=== PATIENT | male | born 1965 | race Caucasian/White ===

== ENCOUNTER → 2020-10-07 09:27 | Outpatient (CLI) | payer OTHER, SELFPAY ==
[2020-10-07 10:57] LABS: COVID19 -Nasal RAPID Negative (Negative)
== END ==
PROVIDERS: Family Provider Family Medicine; PCP Family Medicine; Visit Provider Student in an Organized Health Care Education/Training Program
DX: Z11.59 Encounter for screening for other viral diseases (principal)
CPT/HCPCS: 87635

== ENCOUNTER → 2020-11-12 12:38 | Outpatient (CLI) | payer OTHER, SELFPAY ==
[2020-11-12] MEDS: COVID-19 VACC(MODERNA-1)/PF 100 MCG/0.5 ML VIAL IM (12:46)
== END ==
PROVIDERS: Visit Provider Internal Medicine
DX: Z23 Encounter for immunization (principal)
CPT/HCPCS: 0011A; 91301

== ENCOUNTER → 2020-12-08 07:39 | Outpatient (CLI) | payer OTHER, SELFPAY ==
[2020-12-08] MEDS: COVID-19 VACC #2, MRNA(MOD) 100 MCG/0.5 ML VIAL IM (07:46)
== END ==
PROVIDERS: Visit Provider Internal Medicine
DX: Z23 Encounter for immunization (principal)
CPT/HCPCS: 0012A; 91301

== ENCOUNTER → 2021-03-15 08:00 | Outpatient (CLI) | payer OTHER, SELFPAY ==
--- NOTE | 2021-03-15 | DI.ECHO.S_ITS ---
[facility]---------+ [facility] +---------+ : : [address] : [address] : : : : [id number] : : : : Phone: [phone] +---------+ Echocardiogram Report + + :Name: LANDY SANCHEZ Study Date: 03/15/2021 Height: 70 in : :[facility] ReadingLocation: Weight: 185 lb : : Gender: Male BSA: 2.0 m2 : :: 1965 Age: 55 yrs BP: 118/64 mmHg: :Reason For Study: CARDIOMYOPATHY : :Ordering Physician: AILIN, : :ROBERTO Performed By: Marla Mcknight : :Referring: ROBERTO GIANG : + + Interpretation Summary Limited Echo: 1) Normal left ventricular thickness and size with low normal systolic function (EF about 50%). 2) The right ventricle is borderline dilated and has normal function. 3) Compared to the Echo done 10/09/2020, LVEF has improved from 40-45% to about 50% on this study. Procedure: A two-dimensional transthoracic echocardiogram with color flow and Doppler was performed in limited views only to assess ejection fraction. The study quality was technically adequate. Comparison is made with the echocardiogram of 10/09/2020. The patient was in sinus rhythm with heart rates between 48-65 bpm during the exam. Left Ventricle: The left ventricle is normal in size and wall thickness. Left ventricular ejection fraction is estimated to be 50 +/- 5%. There are no focal wall motion abnormalities. Right Ventricle: The right ventricle is borderline dilated. The right ventricular systolic function is normal. Atria: The left atrium is borderline dilated. Right atrial size is normal. Great Vessels: The IVC is of normal diameter and collapses greater than 50% with a sniff. This suggests a low right atrial pressure of 3 mm Hg. Pericardium/ Pleura There is no pericardial effusion. There is no pleural effusion. MMode/2D Measurements & Calculations LVIDd: 4.9 cm LA A2 area: 20.9 cm2 LVIDs: 3.6 cm LA A4 area: 22.1 cm2 FS: 27.5 % LA length (vol): 5.9 cm IVSd: 0.77 cm LA vol: 66.9 ml LVPWd: 0.69 cm LA vol index: 33.1 ml/m2 LV olguin. diameter/BSA (cm/m^2): 2.4 LV sys. diameter/BSA (cm/m^2): 1.8 RA long axis: 5.6 cm RVD1 (basal): 3.8 cm RA area: 20.6 cm2 TAPSE: 2.5 cm RA vol: 64.8 ml RA : 32.1 ml/m2 IVC diam: 1.1 cm Reading Physician:12:29 PM
== END ==
PROVIDERS: Referring Provider Internal Medicine Cardiovascular Disease; Visit Provider Internal Medicine Cardiovascular Disease
DX: I42.9 Cardiomyopathy, unspecified (principal)
CPT/HCPCS: 93307

== ENCOUNTER → 2022-04-04 06:42 | Outpatient (CLI) | payer OTHER, SELFPAY ==
--- NOTE | 2022-04-04 | DI.ECHO.S_ITS ---
[facility]---------+ [facility] +---------+ : : [address] : : : : [place] : : : : [id number] : : : : Phone: [phone] +---------+ Echocardiogram Report + + :Name: LANDY SANCHEZ Study Date: 04/04/2022 Height: 70 in : :[facility] ReadingLocation: Weight: 190 lb : : Gender: Male BSA: 2.0 m2 : :: 1965 Age: 56 yrs BP: 107/77 mmHg: :Reason For Study: Cardiomyopathy : :Ordering Physician: AILIN, : :ROBERTO Performed By: Franklin Ybarra : :Referring: ROBERTO GIANG : + + Interpretation Summary 1) Normal left ventricular thickness, size, wall motion, and systolic function (EF 55-60%). 2) Upper normal right ventricular size with normal function. 3) No significant valvular abnormalities. 4) Compared to the Echo done 03/15/2021, LVEF has improved from about 50% to 55- 50% on this study. Procedure: A two-dimensional transthoracic echocardiogram with color flow and Doppler was performed. The study quality was technically adequate. Comparison is made with the echocardiogram of 03/14/2021. The patient was in normal sinus rhythm during the exam. Left Ventricle: The left ventricle is normal in size and wall thickness. The ejection fraction is estimated to be 55-60%. Left ventricular systolic function appears normal without focal wall motion abnormalities. Diastolic parameters suggest probable normal left ventricular diastolic function and normal filling pressures. Right Ventricle: The right ventricle is at the upper limits of normal in size. The right ventricular systolic function is normal. Atria: Both atria are normal in size. The interatrial septum grossly appears intact with no obvious evidence for an atrial septal defect. Mitral Valve: The mitral valve is normal in structure and function. There is trace mitral regurgitation. Aortic Valve: The aortic valve is normal in structure and function. There is no aortic valve stenosis. No aortic regurgitation is present. Tricuspid Valve: The tricuspid valve is normal in structure and function. There is mild tricuspid regurgitation. The right ventricular systolic pressure is estimated to be at least 24 mmHg based on an estimated right atrial pressure of 3 mm Hg. Pulmonic Valve: The pulmonic valve is normal in structure and function. There is a trace or physiologic amount of pulmonic regurgitation. Great Vessels: The aortic root is normal size. The dimensions of the ascending aorta are normal. The IVC is of normal diameter and collapses greater than 50% with a sniff. This suggests a low right atrial pressure of 3 mm Hg. Pericardium/ Pleura There is no pericardial effusion. There is no pleural effusion. MMode/2D Measurements & Calculations LVIDd: 5.2 cm LVOT diam: 2.0 cm LVIDs: 3.4 cm Ao root diam: 3.0 cm FS: 34.6 % asc Aorta Diam: 2.9 cm IVSd: 0.90 cm LVPWd: 1.0 cm LV olguin. diameter/BSA (cm/m^2): 2.5 LV sys. diameter/BSA (cm/m^2): 1.7 LA dimension: 3.8 cm RA long axis: 5.3 cm LA A2 area: 19.4 cm2 RA area: 18.1 cm2 LA A4 area: 22.6 cm2 RA vol: 52.3 ml LA length (vol): 5.5 cm RA : 25.6 ml/m2 LA vol: 67.5 ml LA vol index: 33.1 ml/m2 TAPSE_phl: 2.8 cm Doppler Measurements & Calculations Ao V2 max: 110.0 cm/sec LVOT Max Donell: 92.0 cm/sec Ao V2 mean: 79.1 cm/sec LV V1 max P.4 mmHg Ao max P.0 mmHg LV V1 VTI: 21.3 cm Ao mean P.0 mmHg HUMBERTO(I,D): 2.7 cm2 Ao V2 VTI: 24.4 cm HUMBERTO(V,D): 2.6 cm2 sev ratio: 0.87 HUMBERTO indexed to BSA (cm^2/m^2): 1.3 MV E max donell: 78.4 cm/sec TR max donell: 228.0 cm/sec MV A max donell: 51.8 cm/sec TR max P.8 mmHg MV E/A: 1.5 Med Peak E' Donell: 8.9 cm/sec E/E' med: 8.8 Lat Peak E' Donell: 12.6 cm/sec E/E' lat: 6.2 E/e' average: 7.5 MV dec time: 0.26 sec SV(LVOT): 66.9 ml AV VR_phl: 0.84 HUMBERTO(VTI)/BSA_phl: 1.3 MV P1/2t-pr_phl: 77.0 msec Reading Physician:12:45 PM
== END ==
PROVIDERS: Referring Provider Internal Medicine Cardiovascular Disease; Visit Provider Internal Medicine Cardiovascular Disease
DX: I07.1 Rheumatic tricuspid insufficiency (principal); I42.9 Cardiomyopathy, unspecified
CPT/HCPCS: 93306

== ENCOUNTER → 2022-05-07 10:39 | Outpatient (CLI) | payer OTHER, SELFPAY ==
[2022-05-07 11:37] LABS: Add Manual Diff / Slide Review NO; Basophils Absolute Auto 0 /uL (0-100); Basophils Percent Auto 0.7 % (0-2); Eosinophils Absolute Auto 200 /uL (0-450); Eosinophils Percent Auto 3.4 % (2-4); Hematocrit 45.6 % (41-53); Hemoglobin 15.5 g/dL (13.5-17.5); Lymphocytes Absolute Auto 1900 /uL (1100-4500); Lymphocytes Percent Auto 29.1 % (25-40); Mean Corpuscular Hemoglobin 29.8 PG (26-34); Mean Corpuscular Volume 87.9 fL (80-100); Monocytes Absolute Auto 600 /uL (0-900); Monocytes Percent Auto 9.8 % (3-14); Neutrophils Absolute Auto 3700 /uL (1500-7000); Platelet Count 319 X10^3/uL (150-400); Red Blood Cell Count 5.19 X10^6/uL (4.5-5.9); Red Cell Distribution Width 14.1 % (11.6-14.8); White Blood Cell Count 6.4 X10^3/uL (4.5-11.0)
[2022-05-07 12:18] LABS: BUN Creatinine Ratio 12.2 (6-22); Blood Urea Nitrogen 18 mg/dL (9-20); Calcium 9.4 mg/dL (8.4-10.2); Carbon Dioxide 26 mmol/L (22-32); Chloride 105 mmol/L (98-107); Cholesterol 301 mg/dL (140-199); Estimated Glomerular Filt Rate 55 mL/min (>60); Glucose 98 mg/dL (70-100); HDL Cholesterol 55 mg/dL (40-60); HEMOLYSIS < 15 (0-50); LDL Cholesterol Calculated 224 mg/dL (<100); Potassium 5.2 mmol/L (3.4-5.1); Sodium 139 mmol/L (137-145); Triglycerides 109 mg/dL (35-150)
== END ==
PROVIDERS: PCP Family Medicine; Referring Provider Internal Medicine Cardiovascular Disease; Visit Provider Internal Medicine Cardiovascular Disease
DX: Z00.00 Encounter for general adult medical examination without abnormal findings (principal); I48.19 Other persistent atrial fibrillation
CPT/HCPCS: 36415; 80048; 80061; 85025